=== PATIENT | male | born 1980 | race Caucasian/White ===

== ENCOUNTER → 2019-05-13 | Outpatient (CLI) | payer OTHER ==
--- NOTE | 2019-05-16 00:28 | SLEEPCENT ---
DATE OF PROCEDURE: 05/13/2019 ORDERED BY: DERIK Kaplan Nocturnal polysomnography was performed for evaluation of sleep physiology in this patient with nonrestorative sleep who has a comorbidity of post-traumatic stress disorder (PTSD). 7 hours and 31 minutes of data were reviewed. There were 383.5 minutes of sleep identified. Sleep latency was normal at 8 minutes. Rapid eye movement (REM) latency was somewhat delayed at 163 minutes. Sleep architecture was fairly good. There were three REM cycles noted. Overall sleep efficiency was 86.6%. The patient's electrocardiogram showed a sinus rhythm with respiratory variability, average heart rate 58 beats per minute. Rate ranged 40-82. EEG showed essentially normal waveforms for awake and sleep. No focal events were identified. There were no respiratory events identified of 10 seconds in duration or greater and only mild snoring. Respiratory related arousals secondary to snoring occurred 1.6 times per hour. There were no oxygen desaturations. Limb activity was minimal. IMPRESSION: Normal nocturnal polysomnography with mild snoring.
== END ==
LOC: M SLEEP 20:00
PROVIDERS: ATTEND Nurse Practitioner Family
DX: R06.83 Snoring (principal)

== ENCOUNTER → 2021-02-27 | Outpatient (CLI) | payer OTHER ==
--- NOTE | 2021-03-03 04:31 | REP ---
INDICATION: LT SHOULDER PAIN. COMPARISON: None. TECHNIQUE: Axial noncontrast images through the left shoulder with coronal and sagittal reformations. FINDINGS: The osseous structures are intact and normal in appearance. Specifically, the clavicle, scapula, proximal humerus all appear age-appropriate and normal. There is no evidence for subchondral sclerosis/heterogeneity or cystic changes. No osteophytosis. No periarticular loose bodies are identified. The associated acromioclavicular and glenohumeral joints are intact and normal. Surrounding musculature and subcutaneous tissues are normal. IMPRESSION: Normal age-appropriate left shoulder CT. No evidence for acute or healed injury. No arthritic degenerative changes appreciated. <Electronically signed by Porter Costa > 03/03/21 1428
== END ==
LOC: M RAD 13:36
PROVIDERS: ATTEND Nurse Practitioner
DX: M25.512 Pain in left shoulder (principal)

== ENCOUNTER → 2021-06-20 | Outpatient (REF) | LOC: M PLAIMG 10:01 | PROVIDERS: ATTEND Internal Medicine | DX: R06.02 Shortness of breath (principal) ==